=== PATIENT | male | born 1965 | race Caucasian/White ===

== ENCOUNTER 2018-04-30 08:00 | Outpatient (RCR) | payer OTHER ==
[2018-01-31 13:30] VITALS: BP 118/78
[2018-01-31 13:32] VITALS: BP 124/80
--- NOTE | 2018-01-31 15:01 | CARDIAC REHAB PLAN OF CARE ---
Physician: Helena HERNANDEZ Patient is being seen: Driss Short [facility] Diagnosis: STEMI, Stent x 2 (LAD) Date of Initial Evaluation: January 31, 2018 52 y/o male patient in today for and evaluation for a Cardiac Rehab phase II program following a STEMI (anterior-lateral), with two stents placed (LAD) on January 22, 2018. Patient with no prior cardiac hx, and health hx reveals only gallbladder removal 27 years ago, and chronic mild low back pain for the past 20 years, possibly due to a fall down some stairs. January 22, 2018 patient reported playing 18 holes of golf (walking), then returning to the office and shortly then developed CP 7/10, radiating pain to the neck and jaw, and diaphoretic. Co-worker drove him to [facility] ER, diagnosed with STEMI and transferred by air to [place]. Exercise Assessment: Exercise Plan: Patient is 5'8", 177 pounds and is active, and also walks for exercise. Patient will start a 36 visit, phase II program. Goals: Will be to gradually increase duration and intensity of exercise while achieving a minimum of 150 minutes each week at a MET level of (3.0-6.0). Exercise Prescription:Patient will divide time between the treadmill and the elliptical working towards a MET level of at least 3.0, a RPE level of 3-5, while achieving a THR zone of 100-117 with the first six sessions at 55-65% or a THR zone of 92-109. Mode:Warm up, walking on the treadmill, and using the elliptical, followed weight resistance, stretching and cool down. Frequency:Cardiac rehab three times a week, with off day walks encouraged to achieve the minimum of 150 minutes each week. Duration:Patients initial evaluation shows his conditioning level could handle 30 minutes of cardio exercise to begin the program. Intensity:Patient can start with MET levels at 3.0 or above, achieving THR zone, and RPE levels of 3-5 on our 0-10 scale. Education:Provide DASH, and Mediterranean diets, and will continue to educate during visits for rehab. Exercise Reassessment (Date: 03/03/2018 ): Exercise Discharge/Follow-Up (Date: ): Nutrition Assessment: Patient's current diet plan is good with some adjustment still to be made. Patient would like to 10-15 pounds and that will also get him in his BMI healthy weight range. Nutrition Plan: Goals:Are to focus on a heart healthy diet (DASH or Mediterranean) Intervention:Patient usually prepared meals with whole foods and already limits eating processed food items. Education:To limit sugars, sugar substitutes, and refined carbohydrates. To understand proper portion sizes, and include healthy snacks in the overall calorie count for that day. Nutrition Reassessment (Date: 03/03/2018 ): Nutrition Discharge/Follow-Up (Date: ): Psychosocial Assessment: Psychosocial Plan: Goals:To understand and commit to the consistency of exercise and eating healthy to make those heart healthy improvements. A goal of reducing stress as much a possible. Include the four major factors for good health which are regular exercise, heathy eating, sleep, and happy, stress free moments. Intervention:On going. Education:The initial HADS scale revealed a moderate level of depression, and a normal level of anxiety. Psychosocial Reassessment (Date: _03/03/2018 ): Psychosocial Discharge/Follow-Up (Date: ): Other Core Components/Risk Factors Assessment:Other modifiable factors to address during cardiac rehab are lipid management: Patients most recent lipid panel shows Chol: 229, LDL: 139, Tri, CHOLHDLRAT:5.09 Other Core Components/Risk Factors Plan: Goals:With recent medication prescribed, and improvement in diet and increased exercise lipid panel should show improved numbers. Patient should also be able to lose weight on this plan. Intervention:Patient placed on Lipitor after STEMI (Jan) Education:Patient received education on initial exam and will receive on going education during visits for rehab. Other Core Components/Risk Factors Reassessment (Date: ): Other Core Components/Risk Factors Discharge/Follow-Up (Date: ): Cardiac Rehabilitation Plan of Care Comment: Cardiac rehab staff will monitor, record, and evaluate, vitals, ECG, and exercise results to provide the best plan of care for the patient during the 36 visit phase II program. CR staff will motivate and educate the patient during visits for rehab. GAENSH
[2018-02-05 13:42] VITALS: BP_SYST 112; BP_SYST 124; BP_DIAS 78; BP_DIAS 88
[2018-02-07 17:17] VITALS: BP 112/76
[2018-02-07 17:18] VITALS: BP 108/76
[2018-02-10 13:47] VITALS: BP 120/80
[2018-02-10 13:48] VITALS: BP 112/90
[2018-02-12 13:13] VITALS: BP 122/82
[2018-02-12 13:14] VITALS: BP 110/80
[2018-02-14 13:05] VITALS: BP_SYST 120; BP_SYST 122; BP_DIAS 74; BP_DIAS 76
[2018-02-17 13:20] VITALS: BP 128/80
[2018-02-17 13:21] VITALS: BP 138/88
[2018-02-19 12:46] VITALS: BP_SYST 112; BP_SYST 118; BP_DIAS 66; BP_DIAS 78
[2018-02-21 17:39] VITALS: BP 110/80
[2018-02-21 17:40] VITALS: BP 102/70
[2018-02-24 17:13] VITALS: BP_SYST 102; BP_SYST 110; BP_DIAS 68; BP_DIAS 82
[2018-02-26 13:03] VITALS: BP 110/80
[2018-02-26 13:04] VITALS: BP 108/70
[2018-03-03 12:43] VITALS: BP 126/80
[2018-03-03 12:44] VITALS: BP 118/78
--- NOTE | 2018-03-04 17:54 | CARDIAC REHAB PLAN OF CARE ---
Physician: Helena HERNANDEZ Patient is being seen: Dirss Deja [facility] Diagnosis: STEMI, Stent x 2 Date of Initial Evaluation: January 31, 2018 Patient profile: 52 y/o male patient in today for and evaluation for a Cardiac Rehab phase II program following a STEMI (anterior-lateral), with two stents placed (LAD) on January 22, 2018. Patient with no prior cardiac hx, and health hx reveals only gallbladder removal 27 years ago, and chronic mild low back pain for the past 20 years, possibly due to a fall down some stairs. January 22, 2018 patient reported playing 18 holes of golf (walking), then returning to the office and shortly then developed CP 7/10, radiating pain to the neck and jaw, and diaphoretic. Co-worker drove him to [facility] ER, diagnosed with STEMI and transferred by air to [place]. Exercise Assessment: Exercise Plan: Patient is 5'8", 177 pounds and is active, and also walks for exercise. Patient will start a 36 visit, phase II program. Goals: Will be to gradually increase duration and intensity of exercise while achieving a minumum of 150 minutes each week at a MET level of (3.0-6.0). Exercise Prescription:Patient will divide time between the treadmill and the elliptical working towards a MET level of at least 3.0, a RPE level of 3-5, while achieving a THR zone of 100-117 with the first six sessions at 55-65% or a THR zone of 92-109. Mode:Warm up, walking on the treadmill, and using the elliptical, followed weight resistance, stretching and cool down. Frequency:Cardiac rehab three times a week, with off day walks encouraged to achieve the minimum of 150 minutes each week. Duration:Patients initial eval shows his conditioning level could handle 30 minutes of cardio exercise to begin the program. Intensity:Patient can start with MET levels at 3.0 or above, achieving THR zone, and RPE levels of 3-5 on our 0-10 scale. Education:Provide DASH, and Mediterranean diets, and will continue to educate during visits for rehab. Exercise Reassessment (Date: 03/03/2018): Patient tolerates 53 minutes of cardio between a level 8 Elliptical workout and a HIIT treadmill workout, which is then followed by a weight resistance with 9 pound dumbbells. During exercise SPO2 levels are 90's on room air, and the tipple mechanic shows a Sinus Tach without ectopy and rates of 125-142 or 75- 85% of age adjusted max. Patient made nice progress with increases in duration and intensity of exercise during the first 12 visits. Exercise Discharge/Follow-Up (Date: ): Nutrition Assessment: Patient's current diet plan is good with some adjustment still to be made. Patient would like to lose 10-15 pounds and that will also get him in his BMI healthy weight range. Nutrition Plan: Goals:Are to focus on a heart healthy diet (DASH or Mediterranean) Intervention:Patient usually prepared meals with whole foods and already limits eating processed food items. Education:To limit sugars, sugar substitutes, and refined carbohydrates. To understand proper portion sizes, and include healthy snacks in the overall calorie count for that day. Nutrition Reassessment (Date: _03/03/2018): Patient states he has made some adjustments to improve his diet, and also reports his current weight at 175 pounds, showing a 2 pound weight loss. Nutrition Discharge/Follow-Up (Date: ): Psychosocial Assessment: Psychosocial Plan:Goals: To understand and commit to the consistency of exercise and eating healthy to make those heart healthy improvements. A goal of reducing stress as much a possible. Include the four major factors for good health which are regular exercise, healthy eating, sleep, and happy, stress free moments. Intervention:On going.Education: The initial HADS scale revealed a moderate level of depression, and a normal level of anxiety. Psychosocial Reassessment (Date: 03/03/2018): Patient is motivated to improve health and through the first 12 visits has remained motivated with his improvements and results. Patient reports feeling good, and is able to remain active which has lead to a very positive mental outlook. Psychosocial Discharge/Follow-Up (Date: ): Other Core Components/Risk Factors Assessment:Other modifiable factors to adrress during cardiac rehab are lipid management: Patients most recent lipid panel shows Chol: 229, LDL: 139, Tri, CHOLHDLRAT:5.09 Other Core Components/Risk Factors Plan:Goals: With recent medication prescribed, and improvement in diet and increased exercise lipid panel should show improved numbers. Patient should also be able to lose weight on this plan. Intervention:Patient placed on Lipitor after STEMI (Jan) Education:Patient received education on initial exam and will receive on going education during visits for rehab. Other Core Components/Risk Factors Reassessment (Date: 03/03/2018): Patient hasn't had an adjustment in medications or recent labs providing current lipid profile. With increased exercise volume, and dietary adjustments hopefully the next lab test for lipids will show positive results. Other Core Components/Risk Factors Discharge/Follow-Up (Date: ): Cardiac Rehabilitation Plan of Care Comment: Cardiac rehab staff will monitor, record, and evaluate, vitals, ECG, and exercise results to provide the best plan of care for the patient during the 36 visit phase II program. CR staff will motivate and educate the patient during visits for rehab. GANESH
[2018-03-05 12:58] VITALS: BP 118/72
[2018-03-05 12:59] VITALS: BP 118/70
[2018-03-07 16:17] VITALS: BP 112/78
[2018-03-07 16:18] VITALS: BP 103/68
[2018-03-10 13:39] VITALS: BP 108/82
[2018-03-10 13:40] VITALS: BP 100/70
[2018-03-12 13:40] VITALS: BP 122/82
[2018-03-12 13:41] VITALS: BP 102/70
[2018-03-14 13:06] VITALS: BP 116/76
[2018-03-14 13:07] VITALS: BP 110/60
[2018-03-17 13:08] VITALS: BP_SYST 112; BP_SYST 120; BP_DIAS 64; BP_DIAS 74
[2018-03-19 12:37] VITALS: BP 126/80
[2018-03-19 12:40] VITALS: BP 112/82
[2018-03-24 16:21] VITALS: BP 124/80
[2018-03-24 16:23] VITALS: BP 120/80
[2018-03-26 13:05] VITALS: BP 124/76
[2018-03-26 13:07] VITALS: BP 108/58
[2018-03-28 12:43] VITALS: BP_SYST 118; BP_SYST 124; BP_DIAS 58; BP_DIAS 72
[2018-03-31 13:32] VITALS: BP 128/70
[2018-03-31 13:33] VITALS: BP 104/70
[2018-04-02 12:51] VITALS: BP 122/72
[2018-04-02 12:52] VITALS: BP 132/72
[2018-04-04 13:52] VITALS: BP 122/70
[2018-04-04 13:53] VITALS: BP 120/86
--- NOTE | 2018-04-04 17:25 | CARDIAC REHAB PLAN OF CARE ---
Physician: Helena HERNANDEZ Patient is being seen: Driss Deja [facility] Diagnosis: STEMI, Stent x 2 Date of Initial Evaluation: January 31, 2018 52 y/o male patient in today for and evaluation for a Cardiac Rehab phase II program following a STEMI (anterior-lateral), with two stents placed (LAD) on January 22, 2018. Patient with no prior cardiac hx, and health hx reveals only gallbladder removal 27 years ago, and chronic mild low back pain for the past 20 years, possibly due to a fall down some stairs. January 22, 2018 patient reported playing 18 holes of golf (walking), then returning to the office and shortly then developed CP 7/10, radiating pain to the neck and jaw, and diaphoretic. Co-worker drove him to [facility] ER, diagnosed with STEMI and transferred by air to [place]. Exercise Assessment: Exercise Plan: Patient is 5'8", 177 pounds and is active, and also walks for exercise. Patient will start a 36 visit, phase II program. Goals: Will be to gradually increase duration and intensity of exercise while achieving a minumum of 150 minutes each week at a MET level of (3.0-6.0). Exercise Prescription:Patient will divide time between the treadmill and the elliptical working towards a MET level of at least 3.0, a RPE level of 3-5, while achieving a THR zone of 100-117 with the first six sessions at 55-65% or a THR zone of 92-109. Mode:Warm up, walking on the treadmill, and using the elliptical, followed weight resistance, stretching and cool down. Frequency:Cardiac rehab three times a week, with off day walks encouraged to achieve the minimum of 150 minutes each week. Duration:Patients initial eval shows his conditioning level could handle 30 minutes of cardio exercise to begin the program. Intensity:Patient can start with MET levels at 3.0 or above, achieving THR zone, and RPE levels of 3-5 on our 0-10 scale. Education:Provide DASH, and Mediterranean diets, and will continue to educate during visits for rehab. Exercise Reassessment (Date: 03/03/2018 ): Patient tolerates 53 minutes of cardio between a level 8 Elliptical workout and a HIIT treadmill workout, which is then followed by a weight resistance with 9 pound dumbbells. During exercise SPO2 levels are 90's on room air, and the potline monitor shows a Sinus Tach without ectopy and rates of 125-142 or 75- 85% of age adjusted max. Patient made nice progress with increases in duration and intensity of exercise during the first 12 visits. Exercise update as of April 04, 2018: Patient warms up for 5 minutes walking laps on the track, then does a 25 minute elliptical workout at level 9, RPE reaching 6, and acheiving THR zone of 125-142 or 75-85% of his age predicted max heart rate. Patient then spends the next 25 minutes on the treadmill doing a HIIT workout at a 3.6 mph pace and up to 6.1 mph pace for 1.5 minutes this walk run workout achieves THR zone and pts. RPE is 3 during the walk and 6 during the run. Patient then finishes the hour with a weight resistance upper body routine with 10 pound dumbbells and a cool down and stretch period. During exercise SPO2 levels are maintained in the 90's on room air, and the potline monitor shows a ST without ectopy and rates of 105-147. Exercise Discharge/Follow-Up (Date: ): Nutrition Assessment: Patient's current diet plan is good with some adjustment still to be made. Patient would like to lose 10-15 pounds and that will also get him in his BMI healthy weight range. Nutrition Plan: Goals:Are to focus on a heart healthy diet (DASH or Mediterranean) Intervention:Patient usually prepared meals with whole foods and already limits eating processed food items. Education:To limit sugars, sugar substitutes, and refined carbohydrates. To understand proper portion sizes, and include healthy snacks in the overall calorie count for that day. Nutrition Reassessment (Date: 03/03/2018 ): Patient states he has made some adjustments to improve his diet, and also reports his current weight at 175 pounds, showing a 2 pound weight loss. April 04, 2018: Patient reports eating heart healthy choices and limiting sugar and refined carbohydrates. Patients weight is between 171-175. Nutrition Discharge/Follow-Up (Date: ): Psychosocial Assessment: Psychosocial Plan: Goals:To understand and commit to the consistency of exercise and eating healthy to make those heart healthy improvements. A goal of reducing stess as much a possible. Include the four major factors for good heatlh which are regular exercise, heatlhy eating, sleep, and happy, stress free moments. Intervention:On going. Education:The intial HADS scale revealed a moderate level of depression, and a normal level of anxiety. Psychosocial Reassessment (Date: _03/03/2018 ): Patient is motivated to improve health and through the first 12 visits has remained motivated with his improvements and results. Patient reports feeling good, and is able to remain active which has lead to a very positive mental outlook. April 04, 2018: Patient continues to have high motivation for his health and a great outlook for life with the positive results through 25 visits in the phase II program. Psychosocial Discharge/Follow-Up (Date: ): Other Core Components/Risk Factors Plan: Goals:With recent medication prescribed, and improvement in diet and increased exercise lipid panel should show improved numbers. Patient should also be able to lose weight on this plan. Intervention:Patient placed on Lipitor after STEMI (Jan) Education:Patient received education on initial exam and will receive on going education during visits for rehab. Other Core Components/Risk Factors Reassessment (Date: 03/03/2018): Patient hasn't had an adjusment in medications or recent labs providing current lipid profile. With increased exercise volume, and dietary adjustments hopefully the next lab test for lipids will show positive results. April 04, 2018: Patient hasn't received another blood draw for a lipid profile update. Patients consistency of exercise and diet should be able to improvements on his next lipid profile check. Other Core Components/Risk Factors Discharge/Follow-Up (Date: ): Cardiac rehab staff will monitor, record, and evaluate, vitals, ECG, and exercise results to provide the best plan of care for the patient during the 36 visit phase II program. CR staff will motivate and educate the patient during visits for rehab. Short Term Goals Met: Exercise Assessment: Exercise Plan: Patient is 5'8", 177 pounds and is active, and also walks for exercise. Patient will start a 36 visit, phase II program. Goals: Will be to gradually increase duration and intensity of exercise while achieving a minumum of 150 minutes each week at a MET level of (3.0-6.0). Exercise Prescription:Patient will divide time between the treadmill and the elliptical working towards a MET level of at least 3.0, a RPE level of 3-5, while achieving a THR zone of 100-117 with the first six sessions at 55-65% or a THR zone of 92-109. Mode:Warm up, walking on the treadmill, and using the elliptical, followed weight resistance, stretching and cool down. Frequency:Cardiac rehab three times a week, with off day walks encouranged to achieve the minimum of 150 minutes each week. Duration:Patients initial eval shows his conditioning level could handle 30 minutes of cardio exercise to begin the program. Intensity:Patient can start with MET levels at 3.0 or above, achieving THR zone, and RPE levels of 3-5 on our 0-10 scale. Education:Provide DASH, and Mediterranean diets, and will continue to educate during visits for rehab. Exercise Reassessment (Date: _03/03/2018 ): Patient tolerates 53 minutes of cardio between a level 8 Elliptical workout and a HIIT treadmill workout, which is then followed by a weight resistance with 9 pound dumbbells. During exercise SPO2 levels are 90's on room air, and the potline monitor shows a Sinus Tach without ectopy and rates of 125-142 or 75- 85% of age adjusted max. Patient made nice progress with increases in duration and intensity of exercise during the first 12 visits. Exercise Discharge/Follow-Up (Date: ): Short Term Goals Not Met Due To: Nutrition Assessment: Patient's current diet plan is good with some adjustment still to be made. Patient would like to lose 10-15 pounds and that will also get him in his BMI healthy weight range. Nutrition Plan: Goals:Are to focus on a heart healthy diet (DASH or Mediterranean) Intervention:Patient usually prepared meals with whole foods and already limits eating processed food items. Education:To limit sugars, sugar substitutes, and refined carbohydrates. To understand proper portion sizes, and include healthy snacks in the overall calorie count for that day. Nutrition Reassessment (Date: _03/03/2018 ): Patient states he has made some adjustments to improve his diet, and also reports his current weight at 175 pounds, showing a 2 pound weight loss. Nutrition Discharge/Follow-Up (Date: ): Psychosocial Assessment: Psychosocial Plan: Goals:To understand and commit to the consistency of exercise and eating healthy to make those heart healthy improvements. A goal of reducing stress as much a possible. Include the four major factors for good heatlh which are regular exercise, healthy eating, sleep, and happy, stress free moments. Intervention:On going. Education:The initial HADS scale revealed a moderate level of depression, and a normal level of anxiety. Psychosocial Reassessment (Date: __03/03/2018 ): Patient is motivated to improve health and through the first 12 visits has remained motivated with his improvements and results. Patient reports feeling good, and is able to remain active which has lead to a very positive mental outlook. Psychosocial Discharge/Follow-Up (Date: ): Other Core Components/Risk Factors Assessment:Other modifiable factors to adrress during cardiac rehab are lipid management: Patients most recent lipid panel shows Chol: 229, LDL: 139, Tri, CHOLHDLRAT:5.09 Other Core Components/Risk Factors Plan: Goals:With recent medication prescribed, and improvement in diet and increased exercise lipid panel should show improved numbers. Patient should also be able to lose weight on this plan. Intervention:Patient placed on Lipitor after STEMI (Jan) Education:Patient received education on initial exam and will receive on going education during visits for rehab. Other Core Components/Risk Factors Reassessment (Date: 03/03/2018): Patient hasn't had an adjustment in medications or recent labs providing current lipid profile. With increased exercise volume, and dietary adjustments hopefully the next lab test for lipids will show positive results. Other Core Components/Risk Factors Discharge/Follow-Up (Date: ): Cardiac Rehabilitation Plan of Care Comment: Cardiac rehab staff will monitor, record, and evaluate, vitals, ECG, and exercise results to provide the best plan of care for the patient during the 36 visit phase II program. CR staff will motivate and educate the patient during visits for rehab. GANESH
[2018-04-07 16:37] VITALS: BP_SYST 102; BP_SYST 122; BP_DIAS 80; BP_DIAS 82
[2018-04-09 17:00] VITALS: BP 128/68
[2018-04-09 17:01] VITALS: BP 108/82
[2018-04-11 12:43] VITALS: BP_SYST 108; BP_SYST 124; BP_DIAS 76; BP_DIAS 80
[2018-04-14 12:46] VITALS: BP 122/80
[2018-04-14 12:47] VITALS: BP 132/80
[2018-04-16 13:02] VITALS: BP_SYST 108; BP_SYST 122; BP_DIAS 74
[2018-04-21 12:49] VITALS: BP 108/64
[2018-04-21 12:50] VITALS: BP 110/78
[2018-04-23 16:31] VITALS: BP 110/68
[2018-04-23 16:34] VITALS: BP 126/88
[2018-04-28 12:47] VITALS: BP 126/76
[2018-04-28 12:48] VITALS: BP 128/84
[~2018-04-30 08:00] MED LIST: TIZA2CAP3 PO; TRAM-420 PO
[2018-04-30 13:30] VITALS: BP 124/82
[2018-04-30 13:31] VITALS: BP 122/84
== END 2018-05-01 ==
LOC: CARD 08:00
PROVIDERS: ATTEND Internal Medicine Interventional Cardiology
DX: I25.2 Old myocardial infarction (principal); Z98.61 Coronary angioplasty status
CPT/HCPCS: 93798

== ENCOUNTER 2018-05-05 08:00 | Outpatient (RCR) | payer OTHER ==
[2018-05-02 16:49] VITALS: BP 112/76
[2018-05-02 16:52] VITALS: BP 108/76
[2018-05-05 13:00] VITALS: BP 110/80
[2018-05-05 13:01] VITALS: BP 102/70
--- NOTE | 2018-05-06 13:21 | CARDIAC REHAB PLAN OF CARE ---
Physician: Helena HERNANDEZ Patient is being seen: Driss Deja [facility] Diagnosis: STEMI, Stent x 2 Date of Initial Evaluation: 01/31/18 52 y/o male patient in today for an evaluation for a Cardiac Rehab phase II program following a STEMI (anterior-lateral), with two stents placed (LAD) on January 22, 2018. Patient with no prior cardiac hx, and health hx reveals only gallbladder removal 27 years ago, and chronic mild low back pain for the past 20 years, possibly due to a fall down some stairs. January 22, 2018 patient reported playing 18 holes of golf (walking), then returning to the office and shortly then developed CP 7/10, radiating pain to the neck and jaw, and diaphoretic. Co-worker drove him to [facility], diagnosed with STEMI and transferred by air to [place]. Exercise Assessment: Exercise Plan: Patient is 5'8", 177 pounds and is active, and also walks for exercise. Patient will start a 36 visit, phase II program. Goals: Will be to gradually increase duration and intensity of exercise while achieving a minimum of 150 minutes each week at a MET level of (3.0-6.0). Exercise Prescription:Patient will divide time between the treadmill and the elliptical working towards a MET level of at least 3.0, a RPE level of 3-5, while achieving a THR zone of 100-117 with the first six sessions at 55-65% or a THR zone of 92-109. Mode:Warm up, walking on the treadmill, and using the elliptical, followed weight resistance, stretching and cool down. Frequency:Cardiac rehab three times a week, with off day walks encouraged to achieve the minimum of 150 minutes each week. Duration:Patients initial eval shows his conditioning level could handle 30 minutes of cardio exercise to begin the program. Intensity:Patient can start with MET levels at 3.0 or above, achieving THR zone, and RPE levels of 3-5 on our 0-10 scale. Education:Provide DASH, and Mediterranean diets, and will continue to educate during visits for rehab. Exercise Reassessment (Date: 03/03/2018): Patient tolerates 53 minutes of cardio between a level 8 Elliptical workout and a HIIT treadmill workout, which is then followed by a weight resistance with 9 pound dumbbells. During exercise SPO2 levels are 90's on room air, and the acquisition lead shows a Sinus Tach without ectopy and rates of 125-142 or 75- 85% of age adjusted max. Patient made nice progress with increases in duration and intensity of exercise during the first 12 visits. Exercise update as of April 04, 2018: Patient warms up for 5 minutes walking laps on the track, then does a 25 minute elliptical workout at level 9, RPE reaching 6, and acheiving THR zone of 125-142 or 75-85% of his age predicted max heart rate. Patient then spends the next 25 minutes on the treadmill doing a HIIT workout at a 3.6 mph pace and up to 6.1 mph pace for 1.5 minutes this walk run workout achieves THR zone and pts. RPE is 3 during the walk and 6 during the run. Patient then finishes the hour with a weight resistance upper body routine with 10 pound dumbbells and a cool down and stretch period. During exercise SPO2 levels are maintained in the 90's on room air, and the acquisition lead shows a ST without ectopy and rates of 105-147. Exercise Discharge/Follow-Up (Date: 05/05/2018): Patient has finished up the phase II program completing up to 50 minutes of cardio, 25 minutes of treadmill HIIT type of workout and elliptical workout both workouts producing MET levels of 4.0-11.2. Weight resistance followed with a 10 pound dumbbell upper body workout. Patient's post 6 minute walk test showed an increase from 2.9 mph(3.22 METs) to 3.4 mph(3.6 METs). The patient increased 12% on the walk test. Nutrition Assessment: Patient's current diet plan is good with some adjustment still to be made. Patient would like to lose 10-15 pounds and that will also get him in his BMI healthy weight range. Nutrition Plan: Goals:Are to focus on a heart healthy diet (DASH or Mediterranean) Intervention:Patient usually prepared meals with whole foods and already limits eating processed food items. Education:To limit sugars, sugar substitutes, and refined carbohydrates. To understand proper portion sizes, and include healthy snacks in the overall calorie count for that day. Nutrition Reassessment (Date: 03/03/2018): Patient states he has made some adjustments to improve his diet, and also reports his current weight at 175 pounds, showing a 2 pound weight loss. April 04, 2018: Patient reports eating heart healthy choices and limiting sugar and refined carbohydrates. Patients weight is between 171-175. Nutrition Discharge/Follow-Up (Date:05/05/2018): Patient continues to report small adjustments to a heart healthy diet in further reducing sugars and refined carbohydrates as well as portion size. Patient wants to continue to eat heart healthy and also reduce weight by five pounds. Psychosocial Assessment: Psychosocial Plan: Goals:To understand and commit to the consistency of exercise and eating healthy to make those heart healthy improvements. A goal of reducing stess as much a possible. Include the four major factors for good heatlh which are regular exercise, heatlhy eating, sleep, and happy, stress free moments. Intervention:On going. Education:The initial HADS scale revealed a moderate level of depression, and a normal level of anxiety. Psychosocial Reassessment (Date:03/03/2018): Patient is motivated to improve health and through the first 12 visits has remained motivated with his improvements and results. Patient reports feeling good, and is able to remain active which has lead to a very positive mental outlook. April 04, 2018: Patient continues to have high motivation for his health and a great outlook for life with the positive results through 25 visits in the phase II program. Psychosocial Discharge/Follow-Up (Date: 05/05/2018):Patient is very happy and motivated by the results of the phase II program. In comparing the Hospital Anxiety and Depression Scale test the initial test showed a depression score of 9 (in the moderate range for depression) and a 2 for a normal score for anxiety. The post program HADS test score showed a depression score of 3 and an anxiety score of 2, both in the normal range. Other Core Components/Risk Factors Plan: Goals:With recent medication prescribed, and improvement in diet and increased exercise lipid panel should show improved numbers. Patient should also be able to lose weight on this plan. Intervention:Patient placed on Lipitor after STEMI (Jan) Education:Patient received education on initial exam and will receive on going education during visits for rehab. Other Core Components/Risk Factors Reassessment (Date: 03/03/2018): Patient hasn't had an adjusment in medications or recent labs providing current lipid profile. With increased exercise volume, and dietary adjustments hopefully the next lab test for lipids will show positive results. April 04, 2018: Patient hasn't received another blood draw for a lipid profile update. Patients consistency of exercise and diet should be able to improvements on his next lipid profile check. Other Core Components/Risk Factors Discharge/Follow-Up (Date:05/05/2018): At the time of discharge from the 36 visit phase II program the patient will continue to have follow up visits with his primary physician and assistant county engineer for continue evaluation of all medications for lipid and blood pressure managment. GANESH
== END 2018-05-05 18:00 | disposition home or self-care (01) ==
LOC: CARD 08:00
PROVIDERS: ATTEND Internal Medicine Interventional Cardiology
DX: I25.2 Old myocardial infarction (principal); Z98.61 Coronary angioplasty status
CPT/HCPCS: 93798